=== PATIENT | female | born 1960 | race Caucasian/White ===

== ENCOUNTER → 2023-12-05 | Emergency (ER) | payer OTHER ==
[~2023-12-05] VITALS: Ht 165.1 cm; Wt 67.6 kg
[~2023-12-05] MED LIST: ACETAMINOPHEN 500 MG TAB PO ONE; ESTRADIOL1 MG PO; IBUPROFEN 600 MG TAB PO ONE; NORCO 5-325 TA1 EACH PO; SULFASALAZINE500 MG PO; TIROSINT75 MCG PO; ZOFRAN ODT8 MG PO
[2023-12-05 11:05] LABS: BASOPHILS 0.3 % (0-2); HEMOGLOBIN 13.4 g/dL (12.0-18.0); LYMPHOCYTES 10.6 % (24-44); MCH 30.6 (27-36); MCHC 34.4 g/dl (30-36); MONOCYTES 13.2 % (0-12); NEUTROPHILS 75.9 % (39-80); PLATELET COUNT 141 K/uL (140-440); RBC 4.38 M/ul (4.3-5.7); RDW 14.2 (10.5-15.0)
[2023-12-05 11:17] LABS: ALBUMIN 3.4 g/dL (3.4-5.0); ALBUMIN/GLOBULIN RATIO 0.77 (1.1-2.4); ANION GAP 18.7 (7-21); BILIRUBIN, TOTAL 0.4 ng/dL (0.2-1.0); BUN/CREATININE RATIO 10.11 (6.0-28.6); CALCIUM 8.2 mg/dL (8.5-10.1); CREATININE, SERUM 0.89 mg/dL (0.55-1.02); POTASSIUM 3.7 mmol/L (3.5-5.1); PROTEIN, TOTAL 7.8 g/dL (6.4-8.2)
[2023-12-05 11:19] LABS: LACTIC ACID, BLOOD 1.1 mmol/L (0.4-2.0)
[2023-12-05 11:23] LABS: INFLUENZA B NAA NEGATIVE (NEGATIVE); RESPIRATORY SYNCYTIAL VIR NAA NEGATIVE (NEGATIVE)
[2023-12-05 11:58] VITALS: BP 92/66
--- NOTE | 2023-12-05 22:08 | EKG ---
[facility] [address] [place], [place] [address] Signed Normal sinus rhythm ST \T\ T wave abnormality, consider inferolateral ischemia Abnormal ECG No previous ECGs available Confirmed by Christina Veliz MD () on 12/05/2023 10:07:58 PM Electronically Signed By: CHRISTINA VELIZ MD 12/05/232207 PATIENT NAME: RAY SANTOS Electrocardiogram DATE OF : 60 PHYSICIAN: CHRISTINA VELIZ MD REPORT #: [id number] REPORT IS CONFIDENTIAL AND NOT TO BE RELEASED WITHOUT AUTHORIZATION
== END ==
LOC: ED 10:23
PROVIDERS: Emergency Medicine
DX: J10.1 Influenza due to other identified influenza virus with other respiratory manifestations (principal); G43.909 Migraine, unspecified, not intractable, without status migrainosus; E03.9 Hypothyroidism, unspecified; Z79.899 Other long term (current) drug therapy
CPT/HCPCS: 36415; 71045; 80053; 83605; 84484; 85025; 87040; 87502; 93005; 93010; 99284-25; A9270; U0002